=== PATIENT | female | born 1995 | race Two or more races ===

== ENCOUNTER 2016-10-12 13:30 | Observation (INO) | payer MEDICAID ==
[~2016-10-12] VITALS: Ht 162.6 cm; Wt 68.0 kg
== END 2016-10-12 14:35 | disposition home or self-care (01) | DRG 566 ==
LOC: LDRP 13:30
PROVIDERS: ADMIT Specialist; ATTEND Specialist
DX: O62.9 Abnormality of forces of labor, unspecified (principal); Z3A.39 39 weeks gestation of pregnancy
CPT/HCPCS: 59025; 81002; G0378; G0434

== ENCOUNTER 2016-10-13 02:49 | Inpatient (IN) | payer MEDICAID ==
[~2016-10-13] VITALS: Ht 162.6 cm; Wt 68.0 kg
[2016-10-13] MEDS ORDERED: LACTATED RINGER'S 1,000 ML IV SCH (03:05)
[2016-10-13] MEDS ORDERED: LACT. RINGERS/OXYTOCIN 20UNITS 1,000 ML IV SCH (03:05)
[2016-10-13] MEDS ORDERED: PROMETHAZINE HCL 25 MG/ML 1ML IV PRN ×2 (03:15→03:45)
[2016-10-13] MEDS ORDERED: NALBUPHINE HCL 10 MG/1ml INJECTION IV PRN (03:15)
[2016-10-13] MEDS ORDERED: PHISODERM TOP SOLN 240ML BTL TOP PRN (03:15)
[2016-10-13] MEDS ORDERED: CARBOPROST TROMETHAMINE 250 MCG/1ML VIAL IM PRN (03:15)
[2016-10-13] MEDS ORDERED: DERMOPLAST 60ML BOTTLE TOP PRN (03:15)
[2016-10-13] MEDS ORDERED: LIDOCAINE 2%HCL (LOCAL ANESTH.) INJ 20ML MDV IJ ONE (03:15)
[2016-10-13] MEDS ORDERED: WITCH HAZEL-GLYCERIN PAD TOP PRN (03:15)
[2016-10-13] MEDS ORDERED: METHYLERGONOVINE MALEATE 0.2 MG/ML AMP IM PRN (03:15)
[2016-10-13 03:53] LABS: Basophils # (auto) 0 uL; Basophils % (auto) 0.3 % (0.0-2.0); DEFINITIVE VIEW TRANSMISSION; Eosinophils # (auto) 0.1 uL; Eosinophils % (auto) 0.7 % (0.0-7.0); Lymphocytes # (auto) 1.6 uL; Lymphocytes % (auto) 19.3 % (10.0-50.0); Mean Corpuscular Hemoglobin 25.6 pg (28.0-32.0); Mean Corpuscular Hgb Conc. 32.4 g/dL (32.0-36.0); Monocytes # (auto) 0.7 uL; Monocytes % (auto) 8.7 % (0.0-12.0); Platelet Count (auto) 277 10^3/uL (140-450); White Blood Cell 8.5 10^3/uL (4.4-10.8)
[2016-10-13 04:13] LABS: INR 0.96 (0.9-1.15); Partial Thromboplastin Time 27.8 sec (22.64-33.71); Prothrombin Time 9.9 sec (9.37-12.3)
[2016-10-13 04:15] LABS: Albumin 2.5 g/dL (3.4-5.0); BUN/Creatinine Ratio 8.5; Calcium 8.4 mg/dL (8.5-10.1); Potassium 3.5 mmol/L (3.5-5.1)
[2016-10-13 04:18] LABS: Bilirubin, Total 0.3 mg/dL (0.2-1.0); Total Protein 6.3 g/dL (6.4-8.2)
[2016-10-13] MEDS ORDERED: ePHEDrine SULFATE 50 MG/ML AMP IV ONE (04:30)
[2016-10-13] MEDS ORDERED: fentaNYL CITRATE 100 MCG/2 ML VL IV ONE (04:30)
[2016-10-13] MEDS ORDERED: NALOXONE HCL 0.4 MG/ML VIAL IV ONE (04:30)
[2016-10-13] MEDS ORDERED: fentaNYL W ROPIVACAINE 150 ML EPI SCH (04:30)
[2016-10-13] MEDS ORDERED: LIDOCAINE HCL 2 %PF INJ 10ML AMP IJ ONE (04:30)
[2016-10-13] MEDS ORDERED: IBUPROFEN 600 MG TAB PO ONE (05:34)
[2016-10-13 06:07] LABS: Urine Bilirubin Negative (Negative); Urine Color Yellow (Yellow); Urine Glucose Normal (Normal); Urine Ketone Negative (Negative); Urine Nitrite Negative (Negative); Urine RBC 11 /hpf (0 - 4); Urine Squamous Epithelial Cell FEW /hpf (<5); Urine Urobilinogen Normal (Negative)
[2016-10-13 06:10] LABS: Urine Blood 1+ /uL (Negative)
[2016-10-13 07:56] VITALS: BP 111/55
[2016-10-13 08:35] VITALS: BP 119/56
[2016-10-13] MEDS ORDERED: DOCUSATE CALCIUM 240 MG CAP PO SCH (10:00)
[2016-10-13] MEDS: ACETAMINOPHEN 325 MG TAB PO PRN (11:58)
[2016-10-13 12:00] VITALS: BP 111/65
[2016-10-13] MEDS: IBUPROFEN 600 MG TAB PO PRN ×2 (15:31→18:49)
[2016-10-13 16:00] VITALS: BP 112/60
[2016-10-13 19:30] VITALS: BP 106/59
[2016-10-13 23:54] VITALS: BP 118/71
[2016-10-14 04:30] VITALS: BP 100/61
[2016-10-14 07:31] VITALS: BP 104/73
[2016-10-14] MEDS: ACETAMINOPHEN 325 MG TAB PO PRN (08:26)
[2016-10-14] MEDS ORDERED: PREN-96 PO (08:31)
== END 2016-10-14 09:45 | disposition home or self-care (01) | DRG 560 ==
LOC: LDRP 02:49 → OBSVTOIN 02:49
PROVIDERS: ADMIT Specialist; ATTEND Specialist
PROC: 10E0XZZ Delivery of Products of Conception, External Approach (ICD-10-PCS; principal; 2016-10-13)
DX: O62.3 Precipitate labor (principal); O69.1XX0 Labor and delivery complicated by cord around neck, with compression, not applicable or unspecified; Z88.8 Allergy status to other drugs, medicaments and biological substances; Z37.0 Single live birth; Z3A.40 40 weeks gestation of pregnancy
CPT/HCPCS: 36415; 59025; 59409; 80053; 81001; 85025; 85610; 85730; 86850; 86900; 86901; 96374; G0434; J2590